=== PATIENT | male | born 1970 | race Caucasian/White ===

== ENCOUNTER 2018-05-07 16:20 | Emergency (ER) | payer OTHER ==
[2018-05-07 16:34] VITALS: BP 179/97
[2018-05-07] MEDS ORDERED: TETANUS/DIPHTHERIA/PERTUSSIS 0.5 ML SYRINGE IM ONE (16:41)
--- NOTE | 2018-05-07 17:07 | ED Physician Documentation ---
History of Present Illness - Stated complaint Stated Complaint: TOE LAC - Chief complaint Chief Complaint: Laceration - Additonal information Additional information: hx from pt 48 male visiting locally lac between 4th and 5th toes while sailboarding will check with his PMD tomorrow to see if he needs a tdap Review of Systems Skin: reports: Laceration (s) PD PAST MEDICAL HISTORY - Present Medications Home Medications: Ambulatory Orders Medication Instructions Recorded Confirmed Doxycycline Hyclate 100 mg PO BID #14 capsule 05/07/18 Omeprazole [PriLOSEC] 20 mg PO DAILY 05/07/18 05/07/18 - Allergies Allergies/Adverse Reactions: Allergies Allergy/AdvReac Type Severity Reaction Status Date / Time No Known Drug Allergies Allergy Verified 05/07/18 16:33 PD ED PE NORMAL - Vitals Vital signs reviewed: Yes - Derm Derm: Other (lac) Results - Vitals Vitals: Vital Signs - 24 hr 05/07/18 16:30 Temperature 36.3 C L Heart Rate 72 Respiratory 19 Rate Blood Pressure 179/97 H O2 Saturation 98 Oxygen O2 Source Room air Procedures - Laceration (location) foot Length in cm: 2 Wound type: Linear Neurovascular status: Sensory intact, Motor intact Tendon involvement: Tendon intact (visible running through base of lac, ran toe through ROM and no defect in tendon seen, pt states he has never been able to move just the 4th or 5th toe independently , sensory intact) Anesthesia: Marcaine 0.5% (3cc) Wound Preparation: Irrigated copiously NS (removing sand and a small stone - by [employer]) Skin layer closure: Nylon, Interrupted, Size #-0 - enter number (5), Sutures - enter # (3), Other (difficult to access between toes but able to place three sutures, best to loosely approx anyway as this wound is at risk for infection) Other: Patient tolerated well, Other (pt to check with PMD re tdap) Complexity: Simple PD MEDICAL DECISION MAKING - Sepsis Event Vital Signs: Vital Signs - 24 hr 05/07/18 16:30 Temperature 36.3 C L Heart Rate 72 Respiratory 19 Rate Blood Pressure 179/97 H O2 Saturation 98 Oxygen O2 Source Room air Departure - Departure Disposition: 01 Home, Self Care Clinical Impression: Foot laceration Qualifiers: Encounter type: initial encounter Laterality: left Qualified Code(s): S91.312A - Laceration without foreign body, left foot, initial encounter Condition: Good Instructions: ED Laceration Foot Prescriptions: Doxycycline Hyclate 100 mg PO BID #14 capsule Comments: Keep the wound clean Apply antibiotic ointment every day Sutures out 7-10 days Take the antibiotic to prevent infection since the wound was contaminated with seawater Follow up with your PMD to see if you need a tetanus shot Even though we washed the wound well prescribed antibiotics, left the wound a little bit open to prevent festering, there is a risk for infection because of the saltwater contamination. Watch for any signs of developing infection such as redness, swelling, drainage, increasing pain, or fever - if that happens see your doctor as soon as possible And please get your blood pressure rechecked - it was high today
[2018-05-07] MEDS ORDERED: DOXYCYCLINE 100 MG TABLET PO STA (17:31)
[2018-05-07] MEDS ORDERED: BACITRACIN OINT TOP ONE (17:38)
== END 2018-05-07 17:52 | disposition home or self-care (01) ==
LOC: ED 16:20
DX: S91.125A Laceration with foreign body of left lesser toe(s) without damage to nail, initial encounter (principal); R03.0 Elevated blood-pressure reading, without diagnosis of hypertension; W26.9XXA Contact with unspecified sharp object(s), initial encounter; Y93.18 Activity, surfing, windsurfing and boogie boarding; Y92.838 Other recreation area as the place of occurrence of the external cause
CPT/HCPCS: 12001; 99283; A9270